=== PATIENT | female | born 1975 | race Caucasian/White ===

== ENCOUNTER 2025-06-24 05:47 | Day surgery (SDC) | payer OTHER ==
[~2025-06-24] VITALS: Ht 152.4 cm; Wt 77.3 kg
[~2025-06-24 05:47] MED LIST: LOSA-382 PO; SEMA0.253 SQ
[2025-06-24] MEDS ORDERED: SODIUM CHLORIDE 0.9% 1,000 ML ONE (06:02)
[2025-06-24] MEDS ORDERED: SEMA1PEN5 SQ (06:45)
[2025-06-24] MEDS ORDERED: DULO20CA23 PO (06:45)
[2025-06-24] MEDS: SODIUM CHLORIDE 0.9% 1,000 ML IV ONE (07:13)
[2025-06-24] MEDS ORDERED: PROPOFOL 1% 20 ML VIAL IVP ONE (12:00)
== END 2025-06-24 11:00 | disposition home or self-care (01) ==
LOC: SURGERY 05:47
PROVIDERS: ATTEND Internal Medicine
DX: K63.5 Polyp of colon (principal); K64.8 Other hemorrhoids; I10 Essential (primary) hypertension; F41.9 Anxiety disorder, unspecified; Z91.040 Latex allergy status
CPT/HCPCS: 45381; 45385; 88305; C1769; J2704; J7030